=== PATIENT | male | born 1945 | race Caucasian/White ===

== ENCOUNTER 2016-10-12 14:05 | Emergency (ER) | payer MEDICARE, BC ==
--- NOTE | 2016-10-12 15:20 | Emergency Department Record ---
History of Present Illness - General Chief Complaint: Suture removal Stated Complaint: REMOVE STITCHES Time Seen by Provider: 10/12/16 15:12 Source: Patient Mode of arrival: Ambulatory Limitations: No limitations - History of Present Illness Initial Comments: The patient is here due to needing to get sutures removed. He denies any pain or any issues. Complaint: Suture/staple removal Onset/Timin -: Week(s) Initial Visit For: Laceration Returns Today for: Staple/stitch removal Symptoms Since Prior Visit: No new symptoms, Improved Associated Symptoms: None - Related Data Home Medications Medication Instructions Recorded Confirmed Last Taken Albuterol Sulfate [Proair Hfa] 1 - 2 puff IH .EVERY 4-6 HOURS PRN 09/21/1510/1210/12/16 Cilostazol [Pletal] 100 mg PO BID 09/21/15 10/12/16 10/12/16 Fluticasone/Salmeterol 250/50 1 each IH Q12H 09/21/15 10/12/16 10/12/16 [Advair 250/50] Previous Rx's Medication Instructions Recorded Metoprolol Succinate [Toprol Xl] 50 mg PO DAILY #30 tab.er.24h 01/25/16 Multivitamin/Iron/Folic Acid 1 tab PO DAILY #100 tablet 01/25/16 [Centrum] Thiamine Mononitrate [Vitamin B-1] 100 mg PO DAILY tablet 02/02/16 Allergies Allergy/AdvReac Type Severity Reaction Status Date / Time No Known Drug Allergies Allergy Verified 10/12/16 15:02 Travel Screening - Travel/Exposure Within Last 30 Days Have you traveled within the last 30 days?: No - Travel/Exposure Within Last Year Have you traveled outside the [place] in the last year?: No - Additonal Travel Details Have you been exposed to anyone with a communicable illness?: No - Travel Symptoms Symptom Screening: None Past Medical History - SOCIAL HISTORY Smoking Status: Current every day smoker Alcohol Use: Heavy Alcohol Use Comment: 1/2 pt of whiskey a day Drug Use: None - RESPIRATORY Hx Respiratory Disorders: Yes Hx COPD: Yes - CARDIOVASCULAR Hx Cardio Disorders: Yes Hx Abnormal EKG: Yes Hx Irregular Heartbeat: Yes Hx Palpitations: Yes Comment:: atrial fib - NEURO Hx Neuro Disorders: No Comment:: tremors from the alcohol - GI Hx GI Disorders: No Comment:: c/o frequent bowel movements - Hx Genitourinary Disorders: No Comment:: hx of renal cancer - ENDOCRINE Hx Endocrine Disorders: No Hx Diabetes: No Hx Thyroid Disease: No - MUSCULOSKELETAL Hx Musculoskeletal Disorders: Yes Hx Arthritis: Yes - PSYCH Hx Psych Problems: Yes Hx Anxiety: Yes Hx Depression: Yes - HEMATOLOGY/ONCOLOGY Hx Hematology/Oncology Disorders: Yes Hx Cancer: Yes (kidney cancer dx'd Nov, 2014) Hx Chemotherapy: No Hx Radiation Therapy: No Family Medical History Any Significant Family History?: Yes Hx Heart Disease: Father, Mother Physical Exam - General General Appearance: Alert, Oriented x3, Cooperative, No acute distress - Head Head exam: Atraumatic, Normocephalic, Normal inspection Head exam detail: Other (The patient had 4 sutures removed from the L eyebrow area. There were no complications.) - Eye Eye exam: Normal appearance, Other Course Vital Signs 10/12/16 15:03 Temperature 98 F Pulse Rate 101 H Respiratory 18 Rate Blood Pressure 142/102 Pulse Ox 97 Disposition Disposition: Discharge Clinical Impression: Visit for suture removal Disposition: Home, Self-Care Condition: (1) Good Instructions: Suture Removal (ED) Additional Instructions: Return to the ER for any problems. Forms: Patient Portal Access Time of Disposition: 15:20
== END 2016-10-12 15:25 | disposition home or self-care (01) ==
LOC: ER 14:05
DX: Z48.02 Encounter for removal of sutures (principal)

== ENCOUNTER 2017-02-05 18:53 | Emergency (ER) | payer MEDICARE, BC ==
--- NOTE | 2017-02-05 19:25 | Emergency Department Record ---
History of Present Illness - General Chief Complaint: Fall Injury Stated Complaint: FALL INJURY Time Seen by Provider: 02/05/17 19:20 Source: Patient, Family Mode of Arrival: Wheelchair - History of Present Illness Initial Comments: 71 yo male presents after loosing his balance on the pouch and fell off the porch. He bumped his left forehead. No LOC. He also hit his left elbow and and left ankle. No neck pain, chest or abdominal pain. He is not confused and he is at his baseline. He is on Eliquis for afib. He does drink daily alcohol as well. No other current complaints. 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 Witnessed: Yes, by family Place Fall Occurred: Home Loss of Consciousness: None Prolonged Down Time?: No Symptoms Prior to Fall: None Location: Head Location - Extremities: Left: Elbow, Ankle Severity: Moderate Context: Alcohol use Associated Symptoms: Denies - [place] Coma Scale Eye Response: (4) Open spontaneously Motor Response: (6) Obeys commands Verbal Response: (5) Oriented Karson Total: 15 - Related Data Home Medications Medication Instructions Recorded Confirmed Last Taken Albuterol Sulfate [Proair Hfa] 1 - 2 puff IH .EVERY 4-6 HOURS PRN 09/21/1502/0502/05/17 Apixaban [Eliquis] 5 mg PO DAILY 02/05/17 02/05/17 02/05/17 Fluticasone/Salmeterol [Advair 1 each INH DAILY 02/05/17 02/05/17 02/05/17 250-50 Diskus] Pazopanib HCl [Votrient] 800 mg PO DAILY 02/05/17 02/05/17 02/05/17 Previous Rx's Medication Instructions Recorded Metoprolol Succinate [Toprol Xl] 50 mg PO DAILY #30 tab.er.24h 01/25/16 Multivitamin/Iron/Folic Acid 1 tab PO DAILY #100 tablet 01/25/16 [Centrum] Thiamine Mononitrate [Vitamin B-1] 100 mg PO DAILY tablet 02/02/16 Allergies Allergy/AdvReac Type Severity Reaction Status Date / Time No Known Drug Allergies Allergy Verified 02/05/17 19:01 Travel Screening - Travel/Exposure Within Last 30 Days Have you traveled within the last 30 days?: No - Travel/Exposure Within Last Year Have you traveled outside the [place] in the last year?: No - Travel Symptoms Symptom Screening: None Review of Systems Constitutional: Denies: Chills, Fever, Malaise, Weakness Eyes: Denies: Eye discharge, Eye pain, Photophobia ENT: Denies: Congestion, Ear pain, Epistaxis, Throat pain Respiratory: Denies: Cough, Dyspnea, Hemoptysis, Stridor, Wheezes Cardiovascular: Denies: Chest pain, Palpitations, Syncope Endocrine: Denies: Fatigue, Polydipsia, Polyuria Gastrointestinal: Denies: Abdominal pain, Diarrhea, Nausea, Vomiting Genitourinary: Denies: Dysuria, Frequency, Hematuria Musculoskeletal: Reports: Arthralgia, Joint swelling. Denies: Back pain, Myalgia, Neck pain Skin: Reports: Bruising. Denies: Change in color Neurological: Denies: Confusion, Headache, Numbness, Tingling, Tremors, Vertigo , Weakness Psychiatric: Denies: Anxiety Hematological/Lymphatic: Reports: Easy bleeding, Easy bruising. Denies: Blood Clots Past Medical History - SOCIAL HISTORY Smoking Status: Current every day smoker Alcohol Use: Heavy Drug Use: None - RESPIRATORY Hx Respiratory Disorders: Yes Hx COPD: Yes - CARDIOVASCULAR Hx Cardio Disorders: Yes Hx Abnormal EKG: Yes Hx Irregular Heartbeat: Yes Hx Palpitations: Yes Comment:: atrial fib - NEURO Hx Neuro Disorders: No Comment:: tremors from the alcohol - GI Hx GI Disorders: No Comment:: c/o frequent bowel movements - Hx Genitourinary Disorders: No Comment:: hx of renal cancer - ENDOCRINE Hx Endocrine Disorders: No Hx Diabetes: No Hx Thyroid Disease: No - MUSCULOSKELETAL Hx Musculoskeletal Disorders: Yes Hx Arthritis: Yes - PSYCH Hx Psych Problems: Yes Hx Anxiety: Yes Hx Depression: Yes - HEMATOLOGY/ONCOLOGY Hx Hematology/Oncology Disorders: Yes Hx Cancer: Yes (kidney cancer dx'd Nov, 2014) Hx Chemotherapy: No Hx Radiation Therapy: No Family Medical History Any Significant Family History?: Yes Hx Heart Disease: Father, Mother Physical Exam - General General Appearance: Alert, Oriented x3, Cooperative, No acute distress Limitations: No limitations, Other (clear thoughts and speech) - Head Head exam: negative: Normal inspection Head exam detail: Abrasion, Contusion, Hematoma (small left frontal, non tender) . negative: Zapata's sign, General tenderness Image of Face/Head: 1 - small contusion, intact skin - Eye Eye exam: Normal appearance, PERRL, EOMI. negative: Conjunctival injection, Periorbital swelling, Periorbital tenderness - ENT ENT exam: Normal exam, Mucous membranes moist Ear exam: Normal external inspection Nasal Exam: Normal inspection Mouth exam: Normal external inspection Teeth exam: Normal inspection Throat exam: Normal inspection - Neck Neck exam: Normal inspection, Full ROM. negative: Tenderness - Respiratory Respiratory exam: Normal lung sounds bilaterally. negative: Respiratory distress - Cardiovascular Cardiovascular Exam: Regular rate, Normal rhythm, Normal heart sounds Peripheral Pulses: 2+: Radial (R), Radial (L) - GI/Abdominal GI/Abdominal exam: Soft. negative: Tenderness - Rectal Rectal exam: Deferred - exam: Deferred - Extremities Extremities exam: Full ROM, Joint swelling, Normal capillary refill, Tenderness. negative: Normal inspection, Calf tenderness Image of Full Body: 1 - left lateral elbow skin tear with full ROM, 2 - lateral ankle tenderness, intact skin, no deformity. - Back Back exam: Denies: CVA tenderness (R), CVA tenderness (L), Paraspinal tenderness , Tenderness, Vertebral tenderness - Neurological Neurological exam: Alert, CN II-XII intact, Oriented X3. negative: Altered, Motor sensory deficit, Reflexes normal - Psychiatric Psychiatric exam: Normal affect, Normal mood. negative: Agitated, Anxious - Skin Skin exam: Abrasion Type of lesion: Laceration (skin tear to the left elbow) Course Vital Signs 02/05/17 19:07 Temperature 97.3 F L Pulse Rate 72 Respiratory 24 Rate Blood Pressure 127/89 Pulse Ox 96 - Reevaluation(s) Reevaluation #1: GCS 15 A and O X 4. 02/05/17 19:28 Reevaluation #2: No acute changes on the CT scan of the head or neck The XR is negative for fracture of the ankle and elbow. Punctate FB noted XR The labs were reviewed No acute changes on the CBC, CMP, PT,PTT 02/05/17 20:58 Medical Decision Making - Lab Data Result diagrams: 02/05/17 19:25 02/05/17 19:25 Disposition Disposition: Discharge Clinical Impression: Skin tear Contusion of head Qualifiers: Encounter type: initial encounter Contusion of head detail: unspecified part of head Qualified Code(s): S00.93XA - Contusion of unspecified part of head, initial encounter Shoulder sprain Qualifiers: Encounter type: initial encounter Shoulder sprain type: unspecified sprain Laterality: right Qualified Code(s): S43.401A - Unspecified sprain of right shoulder joint, initial encounter Ankle sprain Qualifiers: Encounter type: initial encounter Involved ligament of ankle: unspecified ligament Laterality: left Qualified Code(s): S93.402A - Sprain of unspecified ligament of left ankle, initial encounter Disposition: Home, Self-Care Condition: (1) Good Instructions: Fall Prevention for Older Adults (ED) Additional Instructions: Call Dr Melendez tomorrow for close follow up after your ER visit Avoid alcohol Rest and apply ice to any sore areas Return if you have any new symptoms or concerns Forms: Patient Portal Access Time of Disposition: 22:05
[2017-02-05 19:37] LABS: BASO % 3.3 % (0-6); EOS % 4.6 % (0-6); GRAN % 39.7 % (47-80); HEMATOCRIT 42.5 % (42.0-52.0); HEMOGLOBIN 14.4 gm/dl (14.0-18.0); LYMPH % 38.3 % (16-45); MEAN CELL VOLUME 98.4 fl (81-97); MEAN CORPUSCULAR HEMOGLOBIN 33.3 pg (27-33); MEAN CORPUSCULAR HGB CONC 33.9 g/dl (32-36); MEAN PLATELET VOLUME 10.1 fl (7.4-10.4); MONO % 14.1 % (0-9); PLATELET COUNT 142 K/uL (130-400); RED BLOOD COUNT 4.32 M/uL (4.40-5.70); RED CELL DISTRIBUTION WIDTH 16.5 % (11.5-14.5); WHITE BLOOD COUNT W/O DIFF 5.2 K/uL (4.2-12.2)
[2017-02-05 19:49] LABS: ANION GAP 12.3 (7-16); BLOOD UREA NITROGEN 11 mg/dL (9-20); CARBON DIOXIDE 21.7 mmol/L (22-30); CREATININE 0.8 mg/dL (0.66-1.25); EST GLOMERULAR FILTRATION RATE > 60 ml/min; GLUCOSE,RANDOM 82 mg/dL (70-110)
[2017-02-05 19:50] LABS: INR 0.91; PARTIAL THROMBOPLASTIN TIME 31.5 SECONDS (24.5-39.1); PROTHROMBIN TIME (PATIENT) 10.3 SECONDS (9.5-12.1)
== END 2017-02-05 22:30 | disposition home or self-care (01) ==
LOC: ER 18:53
DX: S00.93XA Contusion of unspecified part of head, initial encounter (principal); S93.402A Sprain of unspecified ligament of left ankle, initial encounter; S51.012A Laceration without foreign body of left elbow, initial encounter; W17.89XA Other fall from one level to another, initial encounter; Y92.008 Other place in unspecified non-institutional (private) residence as the place of occurrence of the external cause; F17.210 Nicotine dependence, cigarettes, uncomplicated; I48.91 Unspecified atrial fibrillation; Z79.01 Long term (current) use of anticoagulants; C64.2 Malignant neoplasm of left kidney, except renal pelvis; Z79.899 Other long term (current) drug therapy; Z51.81 Encounter for therapeutic drug level monitoring
CPT/HCPCS: 70450; 72125; 80048; 80053; 81001; 84439; 84443; 85025; 85610; 85730; 99283; 99284

== ENCOUNTER 2017-05-22 09:32 | Day surgery (SDC) | payer MEDICARE, BC ==
[2017-05-22] MEDS ORDERED: FENTANYL PF 100MCG/2ML VIAL IV ONE (14:00)
[2017-05-22] MEDS ORDERED: LIDOCAINE 2% MDV (20MG/ML) 20ML VIAL IV ONE (14:00)
[2017-05-22] MEDS ORDERED: PROPOFOL 10 MG/ML VIAL IV ONE (14:00)
--- NOTE | 2017-05-28 16:10 | Operative Note ---
DATE OF SURGERY: 05/22/2017 OPERATION: ESOPHAGOGASTRODUODENOSCOPY with biopsy. PREOPERATIVE DIAGNOSIS: Dysphagia. POSTOPERATIVE DIAGNOSES: 1. Prominent epiglottis of unclear significance. 2. No esophageal lesions seen. 3. Antral gastritis. 4. Duodenitis with duodenal fold flattening of unclear significance. SPECIMENS: Duodenum and gastric. ESTIMATED BLOOD LOSS: Minimal. COMPLICATIONS: None apparent. PROCEDURE: After informed consent was obtained from the patient, he was placed in the left lateral decubitus position in the endoscopy suite. He was sedated and monitored by the department of anesthesia. A well-lubricated [id number] gastroscope was placed in the posterior oropharynx and under direct visualization passed to the proximal esophagus. The endoscope was advanced through the proximal, mid, and distal esophagus. Upon insertion of the endoscope, however, there was noted to be prominence and thickening and fullness of the epiglottis with an irregular nodule noted. The endoscope was then advanced into the esophagus which appeared unremarkable all the way for the full length of the esophagus to the level of the GE junction, which also appeared unremarkable. The gastric body demonstrated normal distensibility, normal rugal folds. There perhaps may be some atrophic changes in the proximal stomach. The antrum demonstrated erythematous changes consistent with gastritis. The pylorus was cannulated revealing mild duodenal erythema and superficial erosions and fold flattening. Multiple biopsies obtained from the duodenum to rule out celiac. Antral biopsies were also obtained. J-turn views of the proximal stomach were unremarkable. The endoscope was then straightened and retracted from the patient with no new findings or abnormalities noted other than the aforementioned fullness and irregularity of the epiglottis. RECOMMENDATIONS: I would suggest the patient be on a PPI. I also will refer him to ENT for an evaluation of his epiglottis, as this may be a source for his dysphagia complaints. As always, thank you for allowing me to participate in the healthcare of your patients. CC: Dr. Ricardo ROBERTS
== END 2017-05-22 11:05 | disposition home or self-care (01) ==
LOC: HOP 09:32
PROVIDERS: ATTEND Internal Medicine Gastroenterology
DX: R13.10 Dysphagia, unspecified (principal); K29.80 Duodenitis without bleeding; J05.10 Acute epiglottitis without obstruction; K29.70 Gastritis, unspecified, without bleeding

== ENCOUNTER 2018-01-17 14:08 | Emergency (ER) | payer MEDICARE, BC ==
--- NOTE | 2018-01-17 14:26 | Emergency Department Record ---
History of Present Illness - General Chief Complaint: Fall Injury Stated Complaint: FALL/ HEAD INJURY Time Seen by Provider: 01/17/18 14:11 Mode of Arrival: Ambulatory - History of Present Illness Initial Comments: fall hitting his head on the deck and road 2 hours prior to arrival and he came in by car. Patient on eliquis 2.5 mg BID. Laceration over the right eyebrow. Patient admits to drinking alcohol. Complaint: Fall -: Unknown When Fall Occurred: Unsure Fall Witnessed: No Place Fall Occurred: Home Loss of Consciousness: Unsure Prolonged Down Time?: Unclear Location: Head Associated Symptoms: Denies - [place] Coma Scale Eye Response: (4) Open spontaneously Motor Response: (6) Obeys commands Verbal Response: (5) Oriented [place] Total: 15 - Related Data Previous Rx's Medication Instructions Recorded Metoprolol Succinate [Toprol Xl] 50 mg PO DAILY #30 tab.er.24h 01/25/16 Multivitamin/Iron/Folic Acid 1 tab PO DAILY #100 tablet 01/25/16 [Centrum] Thiamine Mononitrate [Vitamin B-1] 100 mg PO DAILY tablet 02/02/16 Allergies Allergy/AdvReac Type Severity Reaction Status Date / Time No Known Drug Allergies Allergy Verified 01/17/18 14:28 Travel Screening - Travel/Exposure Within Last 30 Days Have you traveled within the last 30 days?: No Review of Systems Reviewed: No additional complaints except as noted below Constitutional: Reports: As per HPI. Denies: Chills, Fever, Malaise, Night sweats, Weakness, Weight change Eyes: Reports: As per HPI. Denies: Eye discharge, Eye pain, Photophobia, Vision change ENT: Reports: As per HPI. Denies: Congestion, Dental pain, Ear pain, Epistaxis , Hearing loss, Throat pain Respiratory: Reports: As per HPI. Denies: Cough, Dyspnea, Hemoptysis, Stridor, Wheezes Cardiovascular: Reports: As per HPI. Denies: Arrhythmia, Chest pain, Dyspnea on exertion, Edema, Murmurs, Orthopnea, Palpitations, Paroxysmal nocturnal dyspnea, Rheumatic Fever, Syncope Endocrine: Reports: As per HPI. Denies: Fatigue, Heat or cold intolerance, Polydipsia, Polyuria Gastrointestinal: Reports: As per HPI. Denies: Abdominal pain, Constipation, Diarrhea, Hematemesis, Hematochezia, Melena, Nausea, Vomiting Genitourinary: Reports: As per HPI. Denies: Dysuria, Frequency, Hematuria, Incontinence, Retention, Testicular pain, Testicular mass, Urgency Musculoskeletal: Reports: As per HPI. Denies: Arthralgia, Back pain, Gout, Joint swelling, Myalgia, Neck pain Skin: Reports: As per HPI. Denies: Bruising, Change in color, Change in hair/ nails, Lesions, Pruritus, Rash Neurological: Reports: As per HPI. Denies: Abnormal gait, Confusion, Headache, Numbness, Paresthesias, Seizure, Tingling, Tremors, Vertigo, Weakness Psychiatric: Reports: As per HPI. Denies: Anxiety, Auditory hallucinations, Depression, Homicidal thoughts, Suicidal thoughts, Visual hallucinations Hematological/Lymphatic: Reports: As per HPI. Denies: Anemia, Blood Clots, Easy bleeding, Easy bruising, Swollen glands Past Medical History - SOCIAL HISTORY Smoking Status: Current every day smoker Alcohol Use: Heavy Drug Use: None - RESPIRATORY Hx Respiratory Disorders: Yes Hx COPD: Yes Hx Pneumonia: Yes - CARDIOVASCULAR Hx Cardio Disorders: Yes Hx Abnormal EKG: Yes Hx Irregular Heartbeat: Yes Hx Palpitations: Yes Comment:: atrial fib - NEURO Hx Neuro Disorders: No Comment:: tremors from the alcohol - GI Hx GI Disorders: No Hx Ulcer: Yes Comment:: c/o frequent bowel movements - Hx Genitourinary Disorders: No Comment:: hx of renal cancer - ENDOCRINE Hx Endocrine Disorders: No Hx Diabetes: No Hx Thyroid Disease: No - MUSCULOSKELETAL Hx Musculoskeletal Disorders: Yes Hx Arthritis: Yes - PSYCH Hx Psych Problems: Yes Hx Anxiety: Yes Hx Depression: Yes - HEMATOLOGY/ONCOLOGY Hx Hematology/Oncology Disorders: Yes Hx Cancer: Yes (kidney cancer dx'd Nov, 2014) Hx Chemotherapy: No Hx Radiation Therapy: No Family Medical History Any Significant Family History?: Yes Hx Heart Disease: Father, Mother Physical Exam - General General Appearance: Alert, Oriented x3, Cooperative, No acute distress - Head Head exam: Normal inspection - Eye Eye exam: Normal appearance, PERRL Pupils: Normal accommodation - ENT ENT exam: Normal exam, Mucous membranes moist, Normal external ear exam, Normal orophraynx, TM's normal bilaterally Ear exam: Normal external inspection. negative: External canal tenderness Nasal Exam: Normal inspection. negative: Discharge, Sinus tenderness Mouth exam: Normal external inspection, Tongue normal Teeth exam: Normal inspection. negative: Dental caries Throat exam: Normal inspection. negative: Tonsillar erythema, Tonsillar exudate - Neck Neck exam: Normal inspection, Full ROM. negative: Tenderness - Respiratory Respiratory exam: Normal lung sounds bilaterally. negative: Respiratory distress - Cardiovascular Cardiovascular Exam: Regular rate, Normal rhythm, Normal heart sounds - GI/Abdominal GI/Abdominal exam: Soft, Normal bowel sounds. negative: Tenderness - Rectal Rectal exam: Deferred - exam: Deferred - Extremities Extremities exam: Normal inspection, Full ROM, Normal capillary refill. negative: Tenderness - Back Back exam: Reports: Normal inspection, Full ROM. Denies: Muscle spasm, Rash noted, Tenderness - Neurological Neurological exam: Alert, Normal gait, Oriented X3, Reflexes normal - Psychiatric Psychiatric exam: Normal affect, Normal mood - Skin Skin exam: Dry, Intact, Normal color, Warm Course Vital Signs 01/17/18 14:11 Pulse Rate 88 Respiratory 20 Rate Blood Pressure 156/97 Pulse Ox 97 - Reevaluation(s) Reevaluation #1: laceration 10 cm 1% with epi 10 ml cleaned with Shurclens No FB two layer closure 5.0 vicryl times four sutures skin 5.0 Ethilon times 7 sutures neuro recheck negative 01/17/18 16:03 Medical Decision Making - Data Complexity MDM Data: Labs Ordered and/or Reviewed, X-Ray Ordered and/or Reviewed (CT head neg, CT c spine neg for fractures) - Lab Data Result diagrams: 01/17/18 14:28 01/17/18 14:28 Disposition Clinical Impression: Laceration of forehead Qualifiers: Encounter type: initial encounter Qualified Code(s): S01.81XA - Laceration without foreign body of other part of head, initial encounter Fall Qualifiers: Encounter type: initial encounter Qualified Code(s): W19.XXXA - Unspecified fall, initial encounter Disposition: Home, Self-Care Condition: (1) Good Instructions: Fall Prevention for Older Adults (ED), Head Injury (ED) Additional Instructions: follow up with DR. Melendez in 10 days sooner any problems wound care Forms: Patient Portal Access Time of Disposition: 16:06 Quality - Quality Measures Quality Measures: Blunt Head Trauma (>2yr) - [place] Coma Scale Eye Response: (4) Open spontaneously Motor Response: (6) Obeys commands Verbal Response: (5) Oriented Karson Total: 15 - Blunt Head Trauma - Adult Quality Measure: Measure #415: Utilization of CT for Minor Blunt Head Trauma ICD10 Codes Entered: Yes Was CT ordered: Yes Does Patient Have Any of the Following: Taking Antiplatelet Med Patient Presented Within 24 Hours of Injury: Yes [place] Score: [address] for Minor Blunt Head Trauma: < CT Done, Appropriate Indication > [G9529] Additional Inclusion Criteria: Within 24hrs (AND) GCS of 15 (AND) CT ordered. [ G9530] Indications For CT: Coagulopathy, Taking Anticoagulant Medication, Drug/Alcohol Intoxication w/Loss of Consciousness, Short-Term Memory Deficits w/Loss of Consciousness - Blood Pressure Screening Does Patient Have Any of the Following: No Blood Pressure Classification: Hypertensive Reading Systolic Measurement: 156 Diastolic Measurement: 97 Screening for High Blood Pressure: < First Hypertensive BP, F/U Documented > [ G8950] First Hypertensive Follow-up Interventions: Referral to alternative/primary care provider.
[2018-01-17 14:31] LABS: BASO % 2.9 % (0-6); EOS % 7.8 % (0-6); HEMATOCRIT 44.3 % (42.0-52.0); HEMOGLOBIN 14.6 gm/dl (14.0-18.0); LYMPH % 27.3 % (16-45); MEAN CELL VOLUME 109.1 fl (81-97); MEAN PLATELET VOLUME 9.5 fl (7.4-10.4); PLATELET COUNT 215 K/uL (130-400); RED BLOOD COUNT 4.06 M/uL (4.40-5.70); RED CELL DISTRIBUTION WIDTH 16.5 % (11.5-14.5); WHITE BLOOD COUNT W/O DIFF 4.1 K/uL (4.2-12.2)
[2018-01-17 14:32] LABS: MEAN CORPUSCULAR HEMOGLOBIN 35.9 pg (27-33)
[2018-01-17 14:44] LABS: BLOOD UREA NITROGEN 12 mg/dL (8-23); CREATININE 0.6 mg/dL (0.7-1.2); EST GLOMERULAR FILTRATION RATE > 60 mL/min
[2018-01-17 14:47] LABS: GLUCOSE,RANDOM 73 mg/dL (74-109)
[2018-01-17 15:11] LABS: ALCOHOL 0.225 g/dL (0-0.010)
--- NOTE | 2018-01-18 17:01 | CT SCAN REPORT ---
EXAM: CT SCAN HEAD WO CONTRAST HISTORY: FALL. LOSS OF CONSCIOUSNESS. TECHNIQUE: Routine noncontrast CT examination of the head is performed. COMPARISON: CT head without contrast dated 02/05/2017. FINDINGS: There is moderate dilatation of the subarachnoid spaces. The ventricles are not enlarged. Mild to moderate periventricular and subcortical white matter lucencies are scattered in each cerebral hemisphere, the pattern of which is unchanged consistent with chronic small vessel ischemia. No convincing new area of abnormally increased or decreased attenuation is noted throughout the brain substance. No new abnormal extraaxial fluid collection is seen. No skull fracture is identified. No cephalohematoma. Mucosal thickening is scattered throughout the majority of paranasal sinuses, mild in degree, consistent with chronic sinusitis. There is opacification of a few posterior inferior right mastoid air cells consistent with retained secretions or mild inflammation. The mastoid air cells are otherwise clear. Prominent cerumen is demonstrated in each external auditory canal. IMPRESSION: 1. NO CT EVIDENCE OF ACUTE MAJOR VESSEL INFARCT, INTRACRANIAL HEMORRHAGE, MASS , NOR SKULL FRACTURE WITHOUT CHANGE IN APPEARANCE OF THE BRAIN SINCE 02/05/2017. 2. GENERALIZED ATROPHY. 3. WHITE MATTER LUCENCIES REDEMONSTRATED IN EACH CEREBRAL HEMISPHERE CONSISTENT WITH CHRONIC SMALL VESSEL ISCHEMIA. 4. MILD CHRONIC INFLAMMATORY CHANGES SCATTERED WITHIN THE PARANASAL SINUSES. OPACIFICATION OF A FEW RIGHT MASTOID AIR CELLS CONSISTENT WITH RETAINED SECRETIONS OR MILD INFLAMMATION. JOB NUMBER: [id number] [facility]
--- NOTE | 2018-01-19 07:37 | CT SCAN REPORT ---
DATE: 01/17/2018 at 1432. EXAM: CT OF THE CERVICAL SPINE WITHOUT CONTRAST. HISTORY: Fall with head trauma. Loss of consciousness. TECHNIQUE: Thin-collimation helical CT examination of the cervical spine is performed in the axial plane without intravenous contrast. Coronal and sagittal reformatted images are generated and reviewed. FINDINGS: There is mild, diffuse osteopenia. There is approximately 2.0 to 3.0 mm of anterolisthesis of C2 on C3, stable. There is minimal retrolisthesis of C3 on C4, also stable. This is associated with reversal of the normal cervical lordosis at C3. The vertebral bodies are otherwise normal in alignment and height. No acute fracture, suspicious subluxation, or prevertebral soft tissue swelling. Multilevel degenerative disc/degenerative endplate changes are identified, moderate in degree, from the C3-C4 through C6- C7 levels and mild at the C2-C3 and C7-T1 levels. Multilevel uncovertebral joint spurring and multilevel bilateral facet arthropathy is present. The facet arthropathy is most pronounced on the right at the mid to upper levels where it is severe. Multilevel bilateral neuroforaminal narrowing is redemonstrated, right greater than left, secondary to uncovertebral joint and facet joint spurring. Bi-apical scarring. No new cervical mass nor adenopathy. There is opacification of a few inferior right mastoid air cells not previously demonstrated consistent with retained secretions or mild inflammation. IMPRESSION: 1. NO ACUTE FRACTURE, SUSPICIOUS SUBLUXATION, OR PREVERTEBRAL SOFT TISSUE SWELLING WITHOUT SIGNIFICANT CHANGE IN APPEARANCE OF THE CERVICAL SPINE SINCE . MULTILEVEL DEGENERATIVE CHANGES, DETAILED ABOVE. 2. OPACIFICATION OF A FEW INFERIOR RIGHT MASTOID AIR CELLS, NEW SINCE THE PRIOR EXAMINATION CONSISTENT WITH RETAINED SECRETIONS OR MILD INFLAMMATION. JOB NUMBER: [id number] [facility]
== END 2018-01-17 16:15 | disposition home or self-care (01) ==
LOC: ER 14:08
DX: S01.111A Laceration without foreign body of right eyelid and periocular area, initial encounter (principal); I48.91 Unspecified atrial fibrillation; J44.9 Chronic obstructive pulmonary disease, unspecified; F17.210 Nicotine dependence, cigarettes, uncomplicated; Z79.01 Long term (current) use of anticoagulants; Z85.528 Personal history of other malignant neoplasm of kidney; W19.XXXA Unspecified fall, initial encounter; Y92.008 Other place in unspecified non-institutional (private) residence as the place of occurrence of the external cause
CPT/HCPCS: 12054 ×2; 99284 ×2; 85025; 85730; 80048; 72125; 70450; G0480; 80320

== ENCOUNTER 2018-03-13 14:46 | Emergency (ER) | payer MEDICARE, BC ==
[2018-03-13] MEDS ORDERED: CEPHALEXIN 500 MG CAPSULE PO STA (14:52)
--- NOTE | 2018-03-13 15:04 | Emergency Department Record ---
History of Present Illness - General Chief Complaint: Laceration(s) Stated Complaint: LACERATION TO LEFT ARM Time Seen by Provider: 03/13/18 14:52 Source: Patient, Family Mode of Arrival: Ambulatory Limitations: No limitations - History of Present Illness Initial Commments: 72 yo male presents with an injury to his left forearm. He was cutting limbs and one snapped back hitting his left forearm. He has very fragile skin. He has large skin tears over the left forearm. No pain with weight bearing. His tetanus is up to date. No other injuries. -: Hour(s) (1) Extremity Location: Left: Forearm Place: Home Context: Accidental Associated Symptoms: None Treatments Prior to Arrival: Bandage - [place] Coma Scale Eye Response: (4) Open spontaneously Motor Response: (6) Obeys commands Verbal Response: (5) Oriented [place] Total: 15 - Related Data Hx Tetanus Toxoid Vaccination: Yes Year of Tetanus Vaccination: unknown Previous Rx's Medication Instructions Recorded Metoprolol Succinate [Toprol Xl] 50 mg PO DAILY #30 tab.er.24h 01/25/16 Multivitamin/Iron/Folic Acid 1 tab PO DAILY #100 tablet 01/25/16 [Centrum] Thiamine Mononitrate [Vitamin B-1] 100 mg PO DAILY tablet 02/02/16 Cephalexin [Keflex] 500 mg PO TID #21 cap 03/13/18 Allergies Allergy/AdvReac Type Severity Reaction Status Date / Time No Known Drug Allergies Allergy Verified 01/17/18 14:28 Review of Systems Constitutional: Denies: Chills, Fever, Malaise, Weakness Eyes: Denies: Eye discharge ENT: Denies: Congestion, Throat pain Respiratory: Reports: Cough Cardiovascular: Denies: Chest pain, Syncope Endocrine: Denies: Fatigue Gastrointestinal: Denies: Abdominal pain, Diarrhea, Nausea, Vomiting Genitourinary: Denies: Dysuria, Frequency, Hematuria Musculoskeletal: Denies: Arthralgia, Joint swelling, Myalgia Skin: Reports: Bruising Neurological: Denies: Confusion, Headache, Numbness, Weakness Psychiatric: Denies: Anxiety Hematological/Lymphatic: Reports: Easy bleeding, Easy bruising Past Medical History - SOCIAL HISTORY Smoking Status: Current every day smoker Drug Use: None - RESPIRATORY Hx Respiratory Disorders: Yes Hx COPD: Yes Hx Pneumonia: Yes - CARDIOVASCULAR Hx Cardio Disorders: Yes Hx Abnormal EKG: Yes Hx Irregular Heartbeat: Yes Hx Palpitations: Yes Comment:: atrial fib - NEURO Hx Neuro Disorders: No Comment:: tremors from the alcohol - GI Hx GI Disorders: No Hx Ulcer: Yes Comment:: c/o frequent bowel movements - Hx Genitourinary Disorders: No Comment:: hx of renal cancer - ENDOCRINE Hx Endocrine Disorders: No Hx Diabetes: No Hx Thyroid Disease: No - MUSCULOSKELETAL Hx Musculoskeletal Disorders: Yes Hx Arthritis: Yes - PSYCH Hx Psych Problems: Yes Hx Anxiety: Yes Hx Depression: Yes - HEMATOLOGY/ONCOLOGY Hx Hematology/Oncology Disorders: Yes Hx Cancer: Yes (kidney cancer dx'd Nov, 2014) Hx Chemotherapy: No Hx Radiation Therapy: No Family Medical History Hx Heart Disease: Father, Mother Physical Exam - General General Appearance: Alert, Oriented x3, Cooperative, No acute distress Limitations: No limitations - Head Head exam: Atraumatic, Normocephalic, Normal inspection Head exam detail: negative: Abrasion, Contusion, Hematoma, Laceration - Eye Eye exam: Normal appearance - ENT ENT exam: Normal exam, Mucous membranes moist Ear exam: Normal external inspection Nasal Exam: Normal inspection Mouth exam: Normal external inspection - Neck Neck exam: Normal inspection - Respiratory Respiratory exam: Decreased breath sounds. negative: Accessory muscle use, Prolonged expiratory, Rhonchi, Stridor, Wheezes - Cardiovascular Cardiovascular Exam: Regular rate, Normal rhythm, Normal heart sounds - Rectal Rectal exam: Deferred - exam: Deferred - Extremities Extremities exam: Normal capillary refill. negative: Normal inspection Image of Full Body: 1 - large, irregular skin tear with dried blood to the left forearm, no obvious FB. NO bony tenderness - Back Back exam: Reports: Full ROM - Neurological Neurological exam: Alert, Oriented X3. negative: Motor sensory deficit - Psychiatric Psychiatric exam: Normal affect, Normal mood - Skin Skin exam: Abrasion, Other (skin tear) Course - Reevaluation(s) Reevaluation #1: The skin tear was copious cleaned with ShurClens and NS. No obvious contamination or FB. The large skin tears were re-approximated where possible We discussed at length that this is a risk for poor, prolonged healing He will need close follow up with his PCP and possible wound care The tetanus is at 5 years 03/13/18 15:06 I SW the patient's PCP Dr Melendez This wound is a risk for prolonged poor healing He will be checked on Friday in the office If wound care referral is necessary Dr Melendez will do that at that time 03/13/18 15:29 Disposition Disposition: Discharge Clinical Impression: Skin tear Disposition: Home, Self-Care Condition: (1) Good Instructions: Skin Tear (ED) Additional Instructions: Call Friday morning to be seen by Dr Melendez in the office to recheck your wounds. Return to the ED if you have fever, pain, pus, swelling or any new concerns. Prescriptions: Cephalexin [Keflex] 500 mg PO TID #21 cap Forms: Patient Portal Access Time of Disposition: 15:31 Quality - Quality Measures Quality Measures: Blunt Head Trauma (>2yr) - Blunt Head Trauma - Adult Quality Measure: Measure #415: Utilization of CT for Minor Blunt Head Trauma ICD10 Codes Entered: Yes Was CT ordered: No Does Patient Have Any of the Following: Taking Antiplatelet Med [place] Score: Please complete [place] Coma Scale above Utilization of CT for Minor Blunt Head Trauma: Patient Excluded [G9531] Additional Inclusion Criteria: More than 24hrs (OR) GCS not 15 (OR) CT not ordered. Not Eligible Reason: CT Not Ordered - Blood Pressure Screening Does Patient Have Any of the Following: Active Dx of HTN Blood Pressure Classification: Hypertensive Reading Systolic Measurement: 148 Diastolic Measurement: 93 Screening for High Blood Pressure: Patient Exclusion, Hx of HTN [G9744]
[2018-03-13] MEDS ORDERED: Diph,Pert(Acell),Tet Vac 0.5 ML SYR IM ONE (15:31)
== END 2018-03-13 15:55 | disposition home or self-care (01) ==
LOC: ER 14:46
DX: S51.812A Laceration without foreign body of left forearm, initial encounter (principal); W22.8XXA Striking against or struck by other objects, initial encounter; Y93.H2 Activity, gardening and landscaping; Y92.007 Garden or yard of unspecified non-institutional (private) residence as the place of occurrence of the external cause; I10 Essential (primary) hypertension; I48.91 Unspecified atrial fibrillation; F17.210 Nicotine dependence, cigarettes, uncomplicated
CPT/HCPCS: 90715; 96372; 99283